=== PATIENT | female | born 1990 | race Caucasian/White ===

== ENCOUNTER 2021-12-02 10:15 | Outpatient (CLI) | payer OTHER ==
[2021-12-02] MEDS ORDERED: PRENATAL TABLE1 EAC1 PO (10:30)
== END 2021-12-02 19:23 | disposition home or self-care (01) ==
LOC: OBS/DEL 10:15
PROVIDERS: ATTEND Specialist
DX: O47.1 False labor at or after 37 completed weeks of gestation (principal); Z3A.40 40 weeks gestation of pregnancy; Z88.0 Allergy status to penicillin

== ENCOUNTER 2021-12-05 17:47 | Inpatient (IN) | payer OTHER ==
[~2021-12-05] VITALS: Ht 160 cm; Wt 80.7 kg
[~2021-12-05 17:47] MED LIST: PRENATAL TABLE1 EAC1 PO
[2021-12-07] MEDS ORDERED: FUSION PLUS CA1 EACH PO (10:33)
== END 2021-12-07 16:55 | DRG 806 ==
LOC: LDR 17:47 → SURG-SUITE 17:47
PROVIDERS: ADMIT Specialist; ATTEND Specialist
PROC: 10E0XZZ Delivery of Products of Conception, External Approach (ICD-10-PCS; principal; 2021-12-05)
PROC: 0UQMXZZ Repair Vulva, External Approach (ICD-10-PCS; 2021-12-05)
PROC: 0UQG7ZZ Repair Vagina, Via Natural or Artificial Opening (ICD-10-PCS; 2021-12-05)
PROC: 4A1HXCZ Monitoring of Products of Conception, Cardiac Rate, External Approach (ICD-10-PCS; 2021-12-05)
DX: O71.82 Other specified trauma to perineum and vulva (principal); O71.4 Obstetric high vaginal laceration alone; Z37.0 Single live birth; Z3A.40 40 weeks gestation of pregnancy; Z20.822 Contact with and (suspected) exposure to COVID-19